=== PATIENT | male | born 1960 | race Caucasian/White ===

== ENCOUNTER 2019-11-14 11:15 | Emergency (ER) | payer OTHER, SELFPAY ==
--- NOTE | ~2019-11-14 | XR_ITS ---
EXAMINATION: XR chest 2V 11/14/2019 11:36 INDICATION: Shortness of breath. Hypertension. COPD. PROCEDURE: 2 view chest COMPARISON: Comparison to multiple prior studies sequentially, with oldest reviewed study dated 03/2017. FINDINGS: The lungs are clear. There are median sternotomy wires. There is a prosthetic heart valve. Calcified granuloma right lung base. The cardiomediastinal silhouette is within normal limits. There are no pleural effusions. There is no pneumothorax suspected. IMPRESSION: 1: NO ACUTE CARDIOPULMONARY DISEASE. Reviewed, dictated and finalized at [facility].
--- NOTE | ~2019-11-14 | CT_ITS ---
EXAMINATION: CTA chest PE protocol DATE: 11/14/2019 13:23 INDICATION: Pleuritic chest pain, dyspnea TECHNIQUE: Computed tomography angiography (CTA) of the chest was performed with 100 mL Omnipaque-350 intravenous contrast timed to evaluate the pulmonary arteries. Coronal maximum intensity projection 3D-reconstructions were created by the technologist. Automated exposure control and iterative reconst ruction technique were employed. Exam dose: 389.00 mGy-cm total exam DLP. COMPARISON: 11/14/2019 PA and lateral chest 10/25/2018 CT chest FINDINGS: There is diagnostic contrast enhancement of the pulmonary arteries and no evidence of pulmo nary embolism. No thoracic aortic aneurysm or dissection. Status post sternotomy/mitral valve replacement. The adrenal glands are normal. Included upper abdominal structures are unremarkable. No hilar or mediastinal mass lesion or lymphadenopathy. No pulmonary infiltrate or consolidation there are chronic probable post-infectious or post-inflammat ory very small nodular densities of the right upper lobe. Healing lateral left ninth rib fracture. Healed lateral right eighth and ninth rib fractures. Likely chronic mild anterior wedging and loss of height of some thoracic vertebrae, most prominent at T7. IMPRESSION: No evidence of pulmonary embolism Status post mitral valve replacement Reviewed, dictated and finalized at [facility]. Reviewed, dictated and finalized at location [facility].
[2019-11-14 11:14] VITALS: BP 178/103; PULSE 76; RESP 13; TEMP 37.1; O2SAT 97
--- NOTE | 2019-11-14 11:19 | ECG_ITS ---
Measurements Intervals [place] Rate: 72 P: 87 OK: 121 QRS: 20 QRSD: 94 T: 46 QT: 370 QTc: 407 Interpretive Statements SINUS RHYTHM EARLY PRECORDIAL R/S TRANSITION BASELINE ARTIFACT- I, II, III, AVR, AVL, AVF, V5-V6 BORDERLINE ECG Electronically Signed On 11-14-2019 11:51:15 CDT by Mk Richmond D.O.
--- NOTE | 2019-11-14 11:21 | ED.SOB ---
HPI - SOB/Dyspnea General Chief Complaint: Shortness of Breath/Dyspnea Stated Complaint: SOB Time Seen by Provider: 11/14/19 11:21 Source: patient and EMS Mode of arrival: EMS Limitations: no limitations History of Present Illness HPI Narrative: Patient is a 58-year-old male with a history of COPD, mitral valve replacement, HTN, who presents for evaluation of shortness of breath and pleuritic chest pain. Patient reports a 2-day history of worsening shortness of breath. Patient states he feels as if he cannot get a deep breath. Patient states that he has felt like in the past and no one has been able to attribute his symptoms any cause. 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 He is a prior 3 pack/day smoker now currently smoking 1 pack/day. He denies fever, chills, rhinorrhea, sore throat, productive cough. He states he had diarrhea 2 days ago. No recent sick contacts. No current abdominal pain. No current chest pain. Related Data Allergies Allergy/AdvReac Type Severity Reaction Status Date / Time No Known Allergies Allergy Verified 11/14/19 11:18 Review of Systems Review of Systems: Narrative: CONSTITUTIONAL: Denies fever, chills, or sweats. EYES: Denies visual changes, redness, or discharge. ENT: Denies rhinorrhea, congestion, sore throat, or otalgia. CARDIOVASCULAR: Reports intermittent chest pain, denies lower extremity edema RESPIRATORY: Denies cough,, reports shortness of breath GASTROINTESTINAL: Denies abdominal pain, nausea, vomiting, or diarrhea. GENITOURINARY: Denies dysuria or hematuria. SKIN: Denies rash or itching. MUSCULOSKELETAL: Denies back pain, joint pain, or myalgia. NEUROLOGIC: Denies headache, numbness, or weakness. [facility] Past Medical History Medical History HYUN (acute kidney injury) Alcoholism Anemia Chronic right upper quadrant pain COPD (chronic obstructive pulmonary disease) Essential (primary) hypertension GERD (gastroesophageal reflux disease) Heart disease Heart balloon 2015 Hemorrhoids 2011 Hypokalemia Insomnia Intractable headache Lung nodule Osteoarthritis Prediabetes SOB (shortness of breath) Surgical History Surgical History H/O hernia repair 2002 H/O prosthetic heart valve Mitral valve replaced 02/2015 Family History Family History (Updated 06/10/19 @ 07:24 by Caryn Ramos CMA) Father Heart disease Mother Heart disease Sibling Heart disease S/P triple vessel bypass H/O aortic valve replacement Social History Social History Smoking packs per day: 1 Smoking cigarettes per day: 20.0 Smoking status: Heavy tobacco smoker Tobacco type: cigarettes Alcohol intake: current Exam Narrative: Exam Narrative: GENERAL: Awake, alert, conversant HEAD: Normocephalic, atraumatic. EYES: PERRLA and EOMI. ENT: Nares clear, no rhinorrhea or epistaxis. Mucous membranes moist. NECK: Supple. CHEST: No respiratory distress, breathing even and non labored, mild expiratory wheezing lower lobes bilaterally, no crackles HEART: Regular rate, sinus rhythm ABDOMEN:Non distended, non tender EXTREMITIES: Normal range of motion. No edema. SKIN: Warm, dry, no rash. NEURO:No focal deficits. Alert and oriented x3 Course Vital Signs Vital signs: Vital Signs Temperature 37.1 C 11/14/19 11:14 Pulse Rate 76 11/14/19 11:14 Respiratory Rate 13 11/14/19 11:14 Blood Pressure 178/103 H 11/14/19 11:14 Pulse Oximetry 97 11/14/19 11:14 Temperature 37.1 C 11/14/19 11:14 Pulse Rate 72 11/14/19 12:58 Respiratory Rate 20 11/14/19 12:58 Blood Pressure 163/106 H 11/14/19 12:58 Pulse Oximetry 100 11/14/19 12:58 MDM - SOB/Dyspnea MDM Narrative Medical decision making narrative: Patient presented for evaluation of shortness of breath. At the ti
[2019-11-14 11:23] VITALS: PULSE 72
[2019-11-14 11:24] VITALS: O2SAT 100
[2019-11-14 11:32] LABS: Basophils Absolute Auto 0.1 K/mm3 (0.0-0.1); Basophils Percent Auto 0.9 % (0.2-1.2); Eosinophils Absolute Auto 0.1 K/mm3 (0-0.3); Eosinophils Percent Auto 2.2 % (0-4.4); Hematocrit 42.8 % (42.0-52.0); Hemoglobin 14.6 g/dL (14.0-18.0); Immature Granulocyte Absolute 0.01 K/mm3 (0.00-0.031); Immature Granulocyte Percent A 0.2 % (0-0.5); Lymphocytes Absolute Auto 1.21 K/mm3 (0.9-3.2); Lymphocytes Percent Auto 21.9 % (18.3-44.2); Mean Corpuscular HGB Conc 34.1 g/dl (32-36); Mean Corpuscular Hemoglobin 33.6 pg (26-34); Mean Corpuscular Volume 98.6 fl (80-100); Mean Platelet Volume 9.5 fl (7.4-10.4); Monocytes Absolute Auto 0.4 K/mm3 (0.1-0.6); Neutrophils Absolute Auto 3.7 K/mm3 (1.3-6.7); Neutrophils Percent Auto 66.8 % (45.5-73.1); Platelet Count Result 178 k/mm3 (150-375); Red Blood Count 4.34 M/mm3 (4.6-6.20); Red Cell Distribution Width 12.5 % (11.5-14.5); White Blood Count 5.5 K/mm3 (4.5-10.0)
[2019-11-14 11:52] LABS: Anion Gap 6 mmol/L (8-16); Blood Urea Nitrogen 23 mg/dL (9-20); Carbon Dioxide 22 mmol/L (22-30); Chloride 110 mmol/L (98-107); Estimated CRCL calculation 71 ml/min; Estimated Glomerular Filt Rate > 60; Glucose 118 mg/dL (75-110); Potassium 3.8 mmol/L (3.4-5.0); Sodium 138 mmol/L (137-145)
[2019-11-14 12:03] LABS: Troponin I < 0.012 ng/mL (0.000-0.034)
[2019-11-14] MEDS: ALBUTEROL SULFATE NEB 2.5 MG/0.5 ML INH 5 MG INHALATION (12:41)
[2019-11-14] MEDS: IPRATROPIUM BR 0.02% INH SOLN 0.5 MG/2.5 ML VIAL 1 MG INHALATION (12:41)
[2019-11-14] MEDS: MAGNESIUM SULF 2 GM/WATER 50ML 2 GM/50 ML BAG IVPB (12:42)
[2019-11-14 12:44] VITALS: PULSE 90; RESP 24
[2019-11-14 12:48] LABS: Alveolar/Arterial O2 Gradient 11.5 mmHg; Base Excess ABG -2.6 mEq/l (+/-2.0); Carboxyhemoglobin 0.7 % THb (0-2.0); Fractional Inspired Oxygen 21 %; HCO3 ABG 20.9 mEq/l (22.0-26.0); Methemoglobin ABG 0.3 %THb (0-1.5); Oxygen Content ABG 20.3 %vol (16.0-22.0); Oxygen Saturation ABG 97.7 % (95.0-100.0); Oxyhemoglobin 96.6 % THb (90.0-100.0); PCO2 ABG 32.7 mmHg (35.0-45.0); PO2 ABG 99.1 mmHg (80.0-100.0); PO2 FiO2 Ratio Arterial Blood 4.72 %; Reduced Hemoglobin 2.4 %THb (0-5.0); Total Hemoglobin 14.9 g/dL (12.0-18.0); pH ABG 7.423 (7.350-7.450)
[2019-11-14 12:49] LABS: Device ROOM AIR; Modified Allen's Test Pass; Site Drawn LEFT RADIAL
[2019-11-14 12:58] VITALS: BP 163/106; PULSE 72; PULSE 98; RESP 20; O2SAT 100
[2019-11-14] MEDS: ACETAMINOPHEN 500 MG TABLET 1000 MG PO (14:04)
[2019-11-14 14:18] LABS: NT Pro B Type Natriuretic Pept 582 PG/ML (5-100)
[2019-11-14 14:45] LABS: Troponin I < 0.012 ng/mL (0.000-0.034)
[2019-11-14 15:03] VITALS: BP 160/103; PULSE 78; RESP 20; O2SAT 97
== END 2019-11-14 15:13 | disposition home or self-care (01) ==
PROVIDERS: Emergency Provider Emergency Medicine; PCP Internal Medicine
DX: J44.1 Chronic obstructive pulmonary disease with (acute) exacerbation (principal); I10 Essential (primary) hypertension; Z95.2 Presence of prosthetic heart valve; K21.9 Gastro-esophageal reflux disease without esophagitis; M19.90 Unspecified osteoarthritis, unspecified site; R73.03 Prediabetes; I51.9 Heart disease, unspecified; F17.210 Nicotine dependence, cigarettes, uncomplicated; R94.31 Abnormal electrocardiogram [ECG] [EKG]
CPT/HCPCS: 36415; 36600; 71046; 71275; 80048; 82375; 82805; 83050; 83880; 84484; 85025; 93005; 94640; 96365; 99284; A9270; J3475; Q9967